=== PATIENT | female | born 1960 | race Caucasian/White ===

== ENCOUNTER → 2021-07-06 15:01 | Outpatient (CLI) | payer OTHER, SELFPAY | PROVIDERS: PCP Internal Medicine; Visit Provider Family Medicine | DX: Z23 Encounter for immunization (principal) ==

== ENCOUNTER 2024-05-21 10:51 | Outpatient (RCR) | payer BC, SELFPAY ==
--- NOTE | 2024-05-21 11:51 | HP.PTEVAL_ITS ---
Patient's Visit Information Visit Information Visit Information: MARLA COLON is a 64 year old F referred to Physical Therapy by Dr. Ashok Bach MD with a diagnosis of L knee pain. Date of Evaluation: 05/21/24 Physical Therapist: Ivan Horton, PT, ATC Visit Plan Frequency: 1x/Week Duration: 1 Week Plan: I instructed pt on a gym routine that she plans to perform independently at the [facility]. Pt is discharged at this time. Subjective Subjective: Pt reports she fell approximately 2 months ago and landed on her L knee on concrete. Pt notes she has been sore since. 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 pt reports she had x-rays which revealed no fractures. Pt notes she used to go on walks with her , but has had to stop that secondary to her pain. Pt denies her L knee locking up/giving out/clicking. Pt reports she has increased pain when she is wearing pants and the material rubs on her knee. Pt denies sleep difficulty at this time. Pt denies tingling or numbness in her L knee. Pt reports the most pain she has is when she is descending stairs. Pt reports her L knee pain ranges from 1- 3/10 Pain L knee: Pain Intensity (Out of 10): 1 Pain Intensity Range: 3 Objective Objective: Neuro: B LE sensation is WNL to light touch Palpation: Pt is sore along the distribution of the patellar tendon. No obvious deformity present at this time. ROM: R knee 0-135; L knee 0-135 degrees MMT: R knee flex= 38, ext= 41 #F; L knee flex= 32, ext= 46 #F Girth: B knees are 32.5 cm Special tests: all negative Goals Goal 1:: N/A Rehabilitation Potential Physical Therapy Diagnosis: Pt has L knee pain secondary to a contusion of the L knee Rehabilitation Potential: Excellent Anticipated Interventions Patient/Client Instruction: Educate patient on: Condition and Plan of Care For the Purpose of:: To improve self management Therapeutic Exercise to Include: Strength training and Endurance training For the Purpose of:: To decrease pain Text: Thank you for the opportunity to evaluate your patient. For Medicare and Medicare HMO plans, please review the plan of care and approve it. It will need to be FAXED BACK to us at [phone] for Medicare purposes. For Medicare only, by signing this I certify the plan of care. Please let me know if there are questions or concerns regarding this plan of care. Physician Signature: Date:
--- NOTE | 2024-07-28 13:14 | HP.PT.NRP ---
Patient Information Patient Information: MARLA COLON was seen in my office for initial evaluation on 05/21/24. The following Plan of Care was established for this patient: POC Established Initial Frequency: 1x/Week Initial Duration: 1 Week Anticipated Interventions Patient/Client Instruction: Educate patient on: Condition and Plan of Care For the Purpose of:: To improve self management Therapeutic Exercise to Include: Strength training and Endurance training For the Purpose of:: To decrease pain Last Seen Last Seen: This patient was last seen in our office . Pertinent comments regarding their Physical therapy will appear below: Discharge At this point I will be discontinuing this patient from physical therapy. I would be happy to see this patient again in the future if found appropriate by the physician. Thank you! Ivan Horton, PT, ATC
== END 2024-05-21 19:00 | disposition home or self-care (01) ==
LOC: PT 10:51
PROVIDERS: PCP Internal Medicine; Referring Provider Specialist; Visit Provider Specialist
DX: S80.02XD Contusion of left knee, subsequent encounter (principal); M25.562 Pain in left knee
CPT/HCPCS: 97161